=== PATIENT | female | born 1995 | race Caucasian/White ===

== ENCOUNTER 2023-01-29 11:02 | Outpatient (CLI) | payer OTHER | END 2023-01-29 23:59 | disposition critical access hospital (66) | LOC: EMS 11:02 | DX: M25.472 Effusion, left ankle (principal); M25.562 Pain in left knee; V43.64XA Car passenger injured in collision with van in traffic accident, initial encounter; Y92.414 Local residential or business street as the place of occurrence of the external cause | CPT/HCPCS: A0425; A0429 ==

== ENCOUNTER 2023-01-29 11:25 | Emergency (ER) | payer OTHER ==
[2023-01-29] MEDS ORDERED: SILVER SULFADIAZINE CREAM 25 GM TUBE TOP STA (12:16)
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
[2023-01-29] MEDS ORDERED: IBUPROFEN 600 MG TABLET PO STA (12:20)
[2023-01-29] MEDS ORDERED: ACETAMINOPHEN 325 MG TABLET PO STA (12:20)
--- NOTE | 2023-01-29 12:24 | XRAY Report ---
PROCEDURE: Ankle 3 View LT INDICATIONS: ankle injury/pain TECHNIQUE: 3 views of the ankle were acquired. COMPARISON: None. FINDINGS: Bones: No fractures or dislocations. Ankle mortise is normally aligned. No suspicious bony lesions . Soft tissues: No tibiotalar joint effusion. Achilles tendon appears normal. IMPRESSION: No acute bony abnormality. Reviewed by: Brien Park on 01/29/2023 11:23 AM MARINA Approved by: Brien Park on 01/29/2023 11:23 AM MARINA Station ID: [id number]
[2023-01-29 12:55] VITALS: BP 121/89
== END 2023-01-29 12:52 | disposition home or self-care (01) ==
LOC: ED 11:25
DX: T25.212A Burn of second degree of left ankle, initial encounter (principal); V89.2XXA Person injured in unspecified motor-vehicle accident, traffic, initial encounter; Y93.89 Activity, other specified
CPT/HCPCS: 73610; 99283; A9270

== ENCOUNTER 2023-02-05 09:31 | Emergency (ER) | payer OTHER ==
[2023-02-05 09:49] VITALS: BP 114/75
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
== END 2023-02-05 11:13 | disposition home or self-care (01) ==
LOC: ED 09:31
DX: T25.212A Burn of second degree of left ankle, initial encounter (principal); X08.8XXA Exposure to other specified smoke, fire and flames, initial encounter
CPT/HCPCS: 99281; 99283

== ENCOUNTER 2023-07-20 09:41 | Outpatient (CLI) | payer OTHER ==
--- NOTE | 2023-07-20 14:00 | MRI Report ---
PROCEDURE: KNEE WO - LT INDICATIONS: KNEE PAIN TECHNIQUE: Noncontrast sagittal PD fast spin echo and T2 fast spin echo with fat saturation, sagittal 3-D gradie nt sequence with fat saturation; coronal T1 spin echo and PD fast spin echo with fat saturation, and axial PD fast spin echo with fat saturation through the knee. COMPARISON: None. FINDINGS: Image quality: Excellent. Menisci: Subtle signal abnormality involving medial periphery of posterior horn medial meniscus likel y extending to inferior articulating surface concerning for subtle oblique tear in this area. The lat eral meniscus is intact.. The meniscal root ligaments appear intact. Cruciate ligaments: The anterior and posterior cruciate ligaments appear intact. Medial structures: The medial collateral ligament appears thickened at its femoral insertion. Visual ized portions of the pes anserinus tendons appear normal. No abnormal bursal fluid. Lateral structures: The lateral collateral ligament, long and short heads of the biceps femoris tend on appear intact. The popliteus tendon appears normal. Iliotibial band appears normal. Anterior structures: The quadriceps and patellar tendons appear intact. Patellar alignment is alexandre l. No femoral trochlear dysplasia or ventral trochlear prominence. No edema in the infrapatellar fa t pad. Bones and cartilage: No bone marrow contusions or fractures. The cartilage of the medial and latera l femorotibial compartments, as well as the patellofemoral compartment, appears normal in thickness. Joint space: There is small knee joint fluid. There is a Carranza's cyst measures 1.8 x 1.3 x 4 cm in s ize. Normal appearing synovial plicae are incidentally noted. IMPRESSION: 1. Finding is concerning for very subtle oblique tear involving medial periphery of posterior horn me dial meniscus extending to inferior articulating surface. The lateral meniscus is intact. 2. The cruciate ligaments are intact. 3. Low-grade proximal MCL sprain at its femoral insertion. 4. No marrow edema. No fracture or dislocation. Articulating cartilages normal in thickness. 5. Small joint effusion and a small Carranza's cyst as above. No gross loose bodies. Reviewed by: Manuel Hunter MD on 07/20/2023 1:59 PM PST Approved by: Manuel Hunter MD on 07/20/2023 1:59 PM PST Station ID: [id number]
== END 2023-07-20 09:42 | disposition home or self-care (01) ==
LOC: DI 09:41
DX: S83.412A Sprain of medial collateral ligament of left knee, initial encounter (principal); M25.462 Effusion, left knee; M71.22 Synovial cyst of popliteal space [Baker], left knee

== ENCOUNTER 2024-01-08 14:31 | Outpatient (CLI) | payer OTHER ==
--- NOTE | 2024-01-08 20:32 | MRI Report ---
Shoulder RT WO CLINICAL HISTORY: 28 years of age, Female, BILATERAL SHOULDER DISLOCATIONS. Comparison: No priors available Technique: Multiplanar, multisequence MRI of the right shoulder was performed without intravenous co ntrast. IV Contrast: Not Administered. Findings: Osseous acromial outlet: No significant degenerative changes of the acromioclavicular joint. Type I a cromion on sagittal imaging. No os acromiale. Mild subacromial/subdeltoid bursal fluid. Rotator cuff muscles and tendons: Low-grade interstitial tear at the junction of the supraspinatus an d infraspinatus, at the footprint extending to the critical zone. The teres minor is unremarkable. Th e subscapularis is unremarkable. Muscles are intact without evidence of atrophy or edema. Labral and capsular structures: Tear of the anterior labrum, extending to the anterior inferior labru m. There is tear of the superior posterior labrum as well, with multiple punctate paralabral cyst. Biceps tendon and anchor: The intra-articular and extra-articular biceps tendon are intact. Osseous and cartilaginous structures: Small Hill-Sachs deformity, measuring 1.2 x 0.3 cm (length by joel ordaz), without associated marrow edema, chronic. No acute fracture. Miscellaneous: No significant glenohumeral effusion. No intra-articular bodies. The remaining muscl es are normal in bulk without evidence of atrophy or edema. IMPRESSION: 1.Low-grade tear at the junction of supraspinatus and infraspinatus. 2.Labral tear as described above, with multiple punctate paralabral cysts about the superior posterio r labrum. 3.Small, chronic Hill-Sachs deformity. Body part: RIGHT shoulder. Reviewed by: Ludmila Ragsdale MD on 01/08/2024 8:31 PM PDT Approved by: Ludmila Ragsdale MD on 01/08/2024 8:31 PM PDT Station ID: [id number]
--- NOTE | 2024-01-08 21:08 | MRI Report ---
Shoulder LT WO CLINICAL HISTORY: 28 years of age, Female, BILATERAL SHOULDER DISLOCATIONS. Comparison: No priors available Technique: Multiplanar, multisequence MRI of the left shoulder was performed without intravenous con trast. IV Contrast: Not Administered. Findings: Osseous acromial outlet: The acromioclavicular joint is unremarkable. Type I acromion on sagittal devang ging. No os acromiale. Mild subacromial/subdeltoid bursal fluid. Rotator cuff muscles and tendons: Mild tendinosis at the junction of the supraspinatus and infraspina tus, without tear. The teres minor is unremarkable. The subscapularis is unremarkable. Muscles are intact without evidence of atrophy or edema. Labral and capsular structures: The visualized labrum appears intact on limited non-arthrogram sequen matias. No paralabral cyst. Biceps tendon and anchor: The intra-articular and extra-articular biceps tendon are intact. Osseous and cartilaginous structures: No Hill-Sachs deformity. No acute fracture. No focal chondral d efect of the glenohumeral joint. Miscellaneous: No significant glenohumeral effusion. No intra-articular bodies. The remaining muscl es are normal in bulk without evidence of atrophy or edema. IMPRESSION: 1.Mild subacromial/subdeltoid bursitis. 2.Mild tendinosis of the junction of supraspinatus and infraspinatus, without tear. 3.No labral tear. No Hill-Sachs deformity. Body part: LEFT shoulder. Reviewed by: Ludmila Ragsdale MD on 01/08/2024 9:07 PM PDT Approved by: Ludmila Ragsdale MD on 01/08/2024 9:07 PM PDT Station ID: [id number]
== END 2024-01-08 14:32 | disposition home or self-care (01) ==
LOC: DI 14:31
PROVIDERS: ATTEND General Practice
DX: M75.111 Incomplete rotator cuff tear or rupture of right shoulder, not specified as traumatic (principal); M21.821 Other specified acquired deformities of right upper arm; S43.431A Superior glenoid labrum lesion of right shoulder, initial encounter; M75.52 Bursitis of left shoulder; M75.92 Shoulder lesion, unspecified, left shoulder

== ENCOUNTER 2024-03-25 12:00 | Outpatient (CLI) | payer OTHER ==
--- NOTE | 2024-03-25 20:38 | XRAY Report ---
PROCEDURE: Shoulder 2+V RT INDICATIONS: RIGHT SHOULDER PAIN TECHNIQUE: 3 views of the shoulder were acquired. COMPARISON: Right shoulder MRI dated 01/08/2024. FINDINGS: Bones: No fractures or dislocations. No suspicious bony lesions. Visualized ribs appear intact. Soft tissues: No suspicious soft tissue calcifications. The visualized lungs are within normal limi ts. IMPRESSION: No acute bony abnormality. No gross soft tissue abnormalities. Reviewed by: Manuel Malcolm MD on 03/25/2024 8:37 PM PDT Approved by: Manuel Malcolm MD on 03/25/2024 8:37 PM PDT Station ID: [id number]
== END 2024-03-25 12:01 | disposition home or self-care (01) ==
LOC: DI 12:00
PROVIDERS: ATTEND Orthopaedic Surgery
DX: M25.511 Pain in right shoulder (principal)

== ENCOUNTER 2025-05-16 18:09 | Inpatient (IN) ==
[2025-05-16] MEDS ORDERED: OXYTOCIN 10 UNIT/ML VIAL IM PRN (18:57)
[2025-05-16] MEDS ORDERED: hydrALAZINE INJ 20 MG/ML VIAL IVP PRN (18:57)
[2025-05-16] MEDS ORDERED: CARBOPROST TROMETHAMINE 250 MCG/ML VIAL IM PRN (18:57)
[2025-05-16] MEDS ORDERED: TRANEXAMIC ACID IN NACL 1,000 MG/100 ML BAG IV PRN (18:57)
[2025-05-16] MEDS ORDERED: TERBUTALINE 1 MG/ML VIAL SUBQ PRN (18:57)
[2025-05-16] MEDS ORDERED: METHYLERGONOVINE 0.2 MG/ML VIAL IM PRN (18:57)
[2025-05-16] MEDS ORDERED: SODIUM CHLORIDE FLUSH 0.9% 10 ML SYRINGE IVP PRN (18:57)
[2025-05-16] MEDS ORDERED: LABETALOL 20 MG/4 ML SYRINGE IVP PRN ×3 (18:57)
[2025-05-16] MEDS ORDERED: SODIUM CHLORIDE FLUSH 0.9% 10 ML SYRINGE IVP SCH (19:00)
--- NOTE | 2025-05-16 19:13 | HISTORY & PHYSICAL EXAMINATION ---
Admit History Smoking Status: Never smoker Meds/Allgy Home Medications Ambulatory Orders Medication Instructions Recorded Confirmed vits no.126-ferrous fum tab PO QDAY 10/16/24 05/13/25 28 mg iron-folic acid 800 mcg tablet (Classic ) ferrous sulfate 325 mg (65 mg 325 mg PO Q OTHER DAY #9 0 tabs 02/27/25 05/13/25 iron) tablet (FeroSul) breast pump #1 ea 05/13/25 05/13/25 Allergies Allergies Allergy/AdvReac Type Severity Reaction Status Date / Time No Known Drug Allergies Allergy Verified 05/13/25 15:17 PFSH Active Problems All Active Problems (Updated 04/22/25 @ 00:00 by ) Supervision of normal first , antepartum (Acute) Rh negative state in antepartum period (Acute) Anemia (Acute) Myopia of both eyes (Acute) Medical History Medical History (Updated 04/22/25 @ 00:00 by ) Bursitis of left shoulder Anterior to posterior tear of superior glenoid labrum of right shoulder Surgical History Surgical History (Updated 11/07/24 @ 21:35 by Mary Rosas MD) Hx of tonsillectomy (09/2023) Social History Social History (Updated 04/08/25 @ 20:25 by Veronica Nelson CNM, [facility]) Smoking Status: Never smoker Do you dip or chew tobacco?: No Do you vape?: No Living arrangement: At home Living Condition: With spouse/s.o. Level: Independent Do you feel safe in your home environment?: Yes History of physical, verbal, emotional, or financial abuse?: No ETOH Use: None Substance Use: denies use Are you sexually active?: Yes Occupation - Current: [employer] Plan for Labor Plan For Labor I expect patient to be DC'd or transferred within 96 hours.: Yes Plan for Labor: HPI: Meeta is a 29yo @ 39.4wks gestation who presents to [facility] for elective induction of labor. She reports she is feeling well other than a little anxious. She denies vaginal bleeding or leakage of fluid. Experienced some menstrual like cramping last night and this morning but nothing overly uncomfortable or consistent. She did lose her mucus plug yesterday and states it was slightly blood tinged but otherwise denies bleeding. She reports +FM. Upon arrival cervix is closed/50/-2 and vertex with intact membranes. She has been a patient of [facility] for the duration of her which has been uncomplicated with the exception of breech presentation at 37wks gestation which was followed by a successful external cephalic version and she has remained vertex, verified by bedside ultrasound since that time. In addition, she is noted to have mild anemia for which she is taking oral iron supplement. She is supported by her partner Iftikhar this evening. She will be admitted to [facility] for placement of cervical ripening balloon in anticipation for induction of labor. In the event of an emergency, accepts the administration of blood products. Medical Hx: No significant Surgical Hx: Shoulder surgery, tonsillectomy. Social Hx: Monogamous with male partner Iftikhar. 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 Stopped drinking alcohol due to . Denies current use of tobacco, marijuana or other recreational drugs. Non-smoker. Reports that she is safe in current relationship. Family Hx: Denies family history of congenital anomalies, Cystic Fibrosis or chromosomal abnormalities Allergies: NKDA Medications: PNV, Ferrous sulfate 325mg q every other day LMP: 08/12/2024 ELAINE by LMP: 05/19/2025 US:10/21/2024 @10+0 Final ELAINE: 05/19/2025 c/w LMP : Current Partner/FOB: Morales Jensener PROBLEMS: 1. Breech presentation- successful ECV 04/29/2025 2. Anemia (on oral iron) 3. RH negative -s/p rhogam 02/27/2025 CONSULTS: ECV consult Dr. Camacho 04/21/2025 Pre- Weight: 139 BMI: 20.2 Blood type: A Negative RHOGAM- 02/27 GIVEN Antibody: Negative CBC: H/H/PLT- 12.1/34.1/363 RUB:imm VZV:imm HBsAg: Negative HepC: NR RPR/AB-EIA: NR HIV:NR PAP: 04/06/2023-normal GC/CT: 4/8 negative HSV: denies Genetic testing: NIPT negative (Its a BOY) AFP-negative Covid: 2019 Flu: 2023 FAS: Placenta: posterior, w/o previa Cord:3VC ELOISE:WNL EFW:369g, 22% 50gm OGCT: 134 TDAP:02/26 Breast Pump:02/26 Antibody screen: NEGATIVE Rhogam given 02/27 3rd trimester H/H/PLT 11.8/35.0/354 3rd trimester RPR- NEG GBS: Positive Delivery plan: EPIDURAL Physical exam: Normocephalic, atraumatic Heart RRR w/o M/G/R Lungs CTAB Abdomen gravid, soft, nontender FHR baseline 130s, moderate variability, + accels, no decels Occasional contraction noted via tocometry and palpates mild with soft resting tone SVE closed/50/-2, vertex with intact membranes. Cervical ripening balloon inserted with 80cc intrauterine and 80cc vaginal balloon. Pt tolerated insertion well. Bilateral LE's no edema Mood is good Assessment: 29yo @ 39.4wks gestation by LMP c/w first trimester ultrasound Mild anemia complicating FHR Category I GBS Positive Plan: Admit to [facility] for pre-induction cervical ripening with cervical ripening balloon. Intermittent heart rate monitoring after initial 4 hours of continuous fet al monitoring. Return for removal of cervical ripening balloon in 12 hours unless spontaneously expelled prior. Initiate ampicillin for GBS prophylaxis per protocol with SROM or onset of active labor. Jacuzzi PRN. Nitrous oxide PRN. Epidural per maternal request. Anticipate .
--- OUTSIDE RECORDS SUMMARY | 2025-05-16 20:15 | EXTERNAL MEDICAL SUMMARY RPT | Continuity of Care Document ---
Author Organization [place] Address [address] [address] Phone Problems date description facility 2025-02-25 18:04 Other specified preg heena related conditions, unspecified trimester [facility] 2025-02-25 18:04 Encounter for superv ision of normal first , unspecified trimester [facility] 2025-02-25 18:04 Unspecified blood type, Rh nega tive [facility] 2025-02-27 14:34 Anemia, unspecified [facility] 2025-02-27 14:34 Other specified preg heena related conditions, unspecified trimester [facility] 2025-02-27 14:34 Encounter for superv ision of normal first , unspecified trimester [facility] 2025-02-27 14:34 Unspecified blood type, Rh nega tive [facility] 2025-02-27 15:15 Anemia, unspecified [facility] 2025-02-27 15:15 Other specified preg heena related conditions, unspecified trimester [facility] 2025-02-27 15:15 Unspecified blood type, Rh nega tive [facility] 2025-02-28 00:05 Anemia, unspecified [facility] 2025-02-28 00:05 Other specified preg heena related conditions, unspecified trimester [facility] 2025-02-28 00:05 Encounter for superv ision of normal first , unspecified trimester [facility] 2025-02-28 00:05 Unspecified blood type, Rh nega tive [facility] 2025-02-28 12:12 Anemia complicating , unspecified trimester [facility] 2025-03-14 08:15 Encounter for superv ision of normal first , third trimester [facility] 2025-03-14 08:16 Encounter for superv ision of normal first , third trimester [facility] 2025-03-14 08:16 30 weeks [facility] of [facility] 2025-03-17 09:55 Encounter for superv ision of normal , unspecified, third [facility] 2025-04-10 09:16 Encounter for superv ision of normal first , third trimester [facility] 2025-04-10 09:16 34 weeks [facility] of [facility] 2025-04-21 11:55 Encounter for screeni ng for Streptococcus B [facility] 2025-04-21 13:11 Encounter for screeni ng for Streptococcus B [facility] 2025-04-21 13:12 Encounter for screeni ng for Streptococcus B [facility] 2025-04-21 14:01 Encounter for screeni ng for Streptococcus B [facility] 2025-04-22 00:05 Encounter for screeni ng for Streptococcus B [facility] 2025-04-23 08:44 Maternal care for br eech presentation, not applicable or unspecified [facility] 2025-04-23 08:44 Encounter for screeni ng for Streptococcus B [facility] 2025-04-23 08:44 36 weeks gestation of [facility] 2025-04-23 11:48 Maternal care for br eech presentation, not applicable or unspecified [facility] 2025-04-23 11:48 Encounter for screeni ng for Streptococcus B [facility] 2025-04-23 11:48 36 weeks [facility] of [facility] 2025-04-23 11:51 Maternal care for br eech presentation, not applicable or unspecified [facility] 2025-04-23 11:51 Encounter for screeni ng for Streptococcus B [facility] 2025-04-23 11:51 36 weeks [facility] of [facility] 2025-04-30 16:07 Maternal care for br eech presentation, not applicable or unspecified [facility] 2025-05-06 08:24 Streptococcus B carrier state c omplicating [facility] 2025-05-06 08:24 37 weeks [facility] 2025-05-12 12:26 Encounter for superv ision of normal first , third trimester [email or web address] 2025-05-15 10:43 Encounter for superv ision of normal first , third trimester [email or web address] Results/Labs test date facility value unit notes Result panel 1 HGB - HEMOGLOBIN 2025-02-27 14:51 [email or web address] 11.8 g/dl (missing) RED CELL DISTRIBUTION WIDTH 2025-02-27 14:51 [email or web address] 12.4 % (missing) WHITE BLOOD COUNT 2025-02-27 14:51 [email or web address] 13.4 x10 3/ul (missing) GLUCOSE,1H PP 50GM DOSE 2025-02-27 14:51 [email or web address] 134 mg/dl 50g Challenge 1 hr post Glucose < 140 mg/dL Reference: [employer] As of January 2023 testing method has changed, this may include reference ranges. RED BLOOD COUNT 2025-02-27 14:51 [email or web address] 3.84 10 6/ul (missing) MEAN CORPUSCULAR HEMOGLOBIN 2025-02-27 14:51 [email or web address] 30.7 pg (missing) MEAN CORPUSCULAR HGB CONC 2025-02-27 14:51 [email or web address] 33.7 g/dl (missing) HCT - HEMATOCRIT 2025-02-27 14:51 [email or web address] 35.0 % (missing) PLT - PLATELET COUNT 2025-02-27 14:51 [email or web address] 354 10 3/ul (missing) FERRITIN 2025-02-27 14:51 [email or web address] 8.7 ng/ml (missing) MEAN PLATELET VOLUME 2025-02-27 14:51 [email or web address] 9.8 fl (missing) MEAN CORPUSCULAR VOLUME 2025-02-27 14:51 [email or web address] 91.1 fl (missing) RPR 2025-02-27 14:51 [email or web address] Non Reactive (missing) Performed at: [facility] Lab[address] [id number] Sign Board Erector: Kj Martínez MD, Phone: [phone] Result panel 2 GROUP B STREP PCR 2025-04-21 11:54 [email or web address] POSITIVE (missing) (missing) Result panel 3 NUCLEATED RED BLOOD CELLS AUTO 2025-04-29 08:35 [facility] 0.0 /100wbc (missing) BASOPHILS # (AUTO) 2025-04-29 08:35 [facility] 0.0 10 3/ul (missing) NRBC ABSOLUTE COUNT (AUTO) 2025-04-29 08:35 [facility] 0 .00 x10 3/ul (missing) EOSINOPHILS # (AUTO) 2025-04-29 08:35 [facility] 0.1 10 3/ul (missing) MONOCYTES # (AUTO) 2025-04-29 08:35 [facility] 0.8 10 3/ul (missing) LYMPHOCYTES # (AUTO) 2025-04-29 08:35 [facility] 1.8 10 3/ul (missing) MEAN PLATELET VOLUME 2025-04-29 08:35 [facility] 10.2 fl (missing) HGB - HEMOGLOBIN 2025-04-29 08:35 [facility] 11.7 g /dl (missing) WHITE BLOOD COUNT 2025-04-29 08:35 [facility] 11.7 x10 3/ul (missing) RED CELL DISTRIBUTION WIDTH 2025-04-29 08:35 [facility] 13.0 % (missing) PLT - PLATELET COUNT 2025-04-29 08:35 [facility] 287 10 3/ul (missing) RED BLOOD COUNT 2025-04-29 08:35 [facility] 3.82 10 6/ul (missing) MEAN CORPUSCULAR HEMOGLOBIN 2025-04-29 08:35 [facility] 30.6 pg (missing) MEAN CORPUSCULAR HGB CONC 2025-04-29 08:35 [facility] 33 .7 g/dl (missing) HCT - HEMATOCRIT 2025-04-29 08:35 [facility] 34.7 % (missing) NEUTROPHILS # (AUTO) 2025-04-29 08:35 [facility] 9.0 10 3/ul (missing) MEAN CORPUSCULAR VOLUME 2025-04-29 08:35 [facility] 90.8 fl (missing) Social History date description facility
[2025-05-16 20:25] LABS: HCT - HEMATOCRIT 33.1 % (37.0-47.0); HGB - HEMOGLOBIN 11.3 g/dL (12.0-16.0); MEAN PLATELET VOLUME 11.2 fL (7.9-10.8); NRBC ABSOLUTE COUNT (AUTO) 0.00 x10^3/uL; NUCLEATED RED BLOOD CELLS AUTO 0.0 /100WBC; PLT - PLATELET COUNT 291 10^3/uL (130-450); RED CELL DISTRIBUTION WIDTH 12.8 % (12.0-15.0)
[2025-05-16] MEDS: fentaNYL 100 MCG/2 ML VIAL IVP PRN (23:42)
[2025-05-17] MEDS ORDERED: ROPIVACAINE 0.2% 200 MG/100 ML BAG EP ONE (00:09)
[2025-05-17] MEDS ORDERED: LIDOCAINE 2%-EPI 1:100000 20 ML MDV ONE (00:09)
[2025-05-17] MEDS: LACTATED RINGERS 1,000 ML IV PRN (00:10)
[2025-05-17] MEDS ORDERED: ONDANSETRON 4 MG/2 ML VIAL ONE (00:44)
--- NOTE | 2025-05-17 01:03 | ANESTHESIA PROCEDURE NOTE ---
Pre-Anesthesia VS, & Labs Diagnosis Surgical Diagnosis:: labor pain Procedure Procedure: labor epidural Vitals Vital Signs: Temp Pulse Resp BP 36.4 C L 58 L 17 119/74 05/16/25 19:06 05/16/25 19:06 05/16/25 19:06 05/16/25 19:06 NPO NPO: Other Is Patient ?: Yes Lab Results Current Lab Results: Laboratory Tests 05/16/25 20:30: Blood Type A NEGATIVE, Antibody Screen POSITIVE, Antibody Identification See Comments, DIALLO, IgG Specific Not Reportable, DIALLO, Polyspecific NEGATIVE, DIALLO, C3d Specific Not Reportable 05/16/25 19:15: WBC 12.0 H, RBC 3.66 L, Hgb 11.3 L, Hct 33.1 L, MCV 90.4, MCH 30.9, MCHC 34.1, RDW 12.8, Plt Count 291, MPV 11.2 H, Neut # (Auto) 8.6 H, Lymph # (Auto) 2.4, [place] # (Auto) 0.9, Eos # (Auto) 0.1, Baso # (Auto) 0.0, Absolute Nucleated RBC 0.00, Nucleated RBC % 0.0 05/16/25 19:15 Meds/Allgy Home Medications Ambulatory Orders Medication Instructions Recorded Confirmed vits no.126-ferrous fum tab PO QDAY 10/16/24 05/13/25 28 mg iron-folic acid 800 mcg tablet (Classic ) ferrous sulfate 325 mg (65 mg 325 mg PO Q OTHER DAY #9 0 tabs 02/27/25 05/16/25 iron) tablet (FeroSul) breast pump #1 ea 05/13/25 05/16/25 Held on 05/16/25. Instructions: Per Patient Allergies Allergies Allergy/AdvReac Type Severity Reaction Status Date / Time No Known Drug Allergies Allergy Verified 05/16/25 20:50 PFSH Active Problems All Active Problems (Updated 05/17/25 @ 01:02 by Vannesa Ferrer CRNA) Scoliosis (Acute) Supervision of normal first , antepartum (Acute) Rh negative state in antepartum period (Acute) Anemia (Acute) Myopia of both eyes (Acute) Medical History Medical History (Updated 05/17/25 @ 01:02 by Vannesa Ferrer CRNA) Bursitis of left shoulder Anterior to posterior tear of superior glenoid labrum of right shoulder Surgical History Surgical History (Updated 05/17/25 @ 01:02 by Vannesa Ferrer CRNA) H/O shoulder surgery Hx of tonsillectomy (09/2023) Social History Social History Smoking Status: Never smoker Do you dip or chew tobacco?: No Do you vape?: No Patient requests smoking cessation consult: No Initiate information on smoking cessation: No Living arrangement: At home Living Condition: With spouse/s.o. Level: Independent Do you feel safe in your home environment?: Yes History of physical, verbal, emotional, or financial abuse?: No ETOH Use: None Substance Use: denies use Are you sexually active?: Yes Occupation - Current: [employer] CPR Status: Attempt Resuscitation (CPR) Level of Medical Intervention: Full Treatment Anesthesia Exam (Expanded) Exam General: Alert, Oriented x3 and Cooperative Dental: WNL Mouth Openin Fingerbreadth Neck Mobility: Normal Mallampati classification: I Thyromental Distance: 4-6 cm Respiratory: Lungs clear Cardiovascular: Regular rate Exam Exam Vital Signs: Vital Signs x48h Temp Pulse Resp BP 05/16/25 19:06 36.4 C L 58 L 17 119/74 Plan Problem List (1) Scoliosis: (2) H/O shoulder surgery: Plan Anesthesia Type: Epidural Consent for Procedure(s) Verified and Reviewed: Yes Code Status: Attempt Resuscitation ASA Classification ASA classification: 2-Mild systemic disease Is this case an emergency?: No
[2025-05-17] MEDS ORDERED: NALBUPHINE 10 MG/ML AMP IVP PRN (01:04)
[2025-05-17] MEDS ORDERED: NALOXONE 0.4 MG/ML VIAL IVP PRN (01:04)
[2025-05-17] MEDS ORDERED: METOCLOPRAMIDE 10 MG/2 ML VIAL IVP PRN (01:04)
[2025-05-17] MEDS ORDERED: LACTATED RINGERS 500 ML IV ONE (01:04)
--- NOTE | 2025-05-17 06:59 | PROVIDER PROGRESS NOTE ---
Labor Progress Note Labor Progress Note Labor Progress Note/Additional Text: S: Feeling comfortable with epidural in place. She has been able to sleep for several hours since the placement and is doing well. Mood is good and partner Iftikhar is supportive at the bedside. O: FHR baseline 140s, moderate variability, + accels, no decels Contractions palpate mild intermittently with soft resting tone SVE 2-3/70/-2, soft, midposition. Vertex Cervical ripening balloon removed complete and intact without difficulty. A: 29yo @ 39.5wks gestation Induction of labor FHR Category I GBS positive P: Initiate pitocin for induction of labor with titration per protocol. Initiate ampicillin for GBS prophylaxis per protocol. Continuous monitoring. Maintain epidural for pain management. Encouraged rotate in bed on peanut ball. Anticipate .
[2025-05-17] MEDS: ePHEDrine 50 MG/ML VIAL IVP PRN (07:06)
[2025-05-17] MEDS: OXYTOCIN/SODIUM CHLORIDE 500 ML IV SCH (07:42)
[2025-05-17] MEDS: ROPIVACAINE 0.2% 200 MG/100 ML BAG EP PRN (11:04)
[2025-05-17] MEDS: AMPICILLIN 2 GM in SODIUM CHLORIDE 0.9% MINIBAG 100 ML IV SCH (11:09)
--- NOTE | 2025-05-17 11:51 | PROVIDER PROGRESS NOTE ---
Labor Progress Note Labor Progress Note Labor Progress Note/Additional Text: S: Patient currently right side lying and comfortable with epidural. She states she has a mild headache and feels it is due to caffeine withdrawal. She denies visual disturbances, RUQ or epigastric pain. Her blood pressure has been norm otensive. She reports otherwise she is feeling well and continues to rest between position changes. O: FHR baseline 130s, moderate variability, + accels, no decels Contractions palpate moderate every 2-4 minutes with soft resting tone SVE 3/70/-2, soft. Vertex. Pitocin @ 12mU/min A: 29yo @ 39.5wks gestation Elective induction of labor FHR Category I GBS positive P: Continue pitocin for induction of labor with titration per protocol. Consider AROM with next SVE in 4 hours. SVE in 4 hours or sooner PRN. Continuous monitoring. Continue ampicillin for GBS prophylaxis per protocol. Encouraged rotation in bed on peanut ball. Anticipate .
[2025-05-17] MEDS: ACETAMINOPHEN 500 MG TABLET PO PRN (12:24)
[2025-05-17] MEDS: AMPICILLIN 1 GM in SODIUM CHLORIDE 0.9% MINIBAG 100 ML IV SCH (15:13)
[2025-05-17] MEDS: ONDANSETRON 4 MG/2 ML VIAL IVP PRN (16:34)
--- NOTE | 2025-05-17 16:44 | PROVIDER PROGRESS NOTE ---
Labor Progress Note Labor Progress Note Labor Progress Note/Additional Text: S: Patient comfortable with epidural. Headache noted earlier this afternoon has resolved. Intermittent, mild nausea without vomiting. Mood is good. Partner Iftikhar supportive at the bedside. O: FHR baseline 130s, moderate variability, + accels, intermittent variable decels Contractions palpate moderate every 2-3 minutes with soft resting tone SVE unchanged from last exam (/-2). Vertex Pitocin @ 18mU/min AROM - moderate amount of clear fluid IUPC placed A: 29yo @ 39.5wks gestation Early labor GBS positive FHR Category II intermittently - overall remains reassuring P: Continue pitocin induction of labor with titration per protocol to reach/maintain adequate MVUs. Continuous monitoring. Maintain epidural for pain management. Encouraged rotation in bed on peanut ball. Anticipate .
--- NOTE | 2025-05-17 20:56 | PROVIDER PROGRESS NOTE ---
Labor Progress Note Labor Progress Note Labor Progress Note/Additional Text: S: Laying in bed positioned on left side. She is feeling comfortable with her epidural. She states over the past hour or so she has started to experience some pressure in her lower back and buttocks but denies pain and states her epidural seems to be working well for her. She states she is tired but doing well. Her partner Iftikhar is supportive at the bedside. O: FHR baseline 140s, moderate variability, + accels, intermittent variable decels Contractions adequate MVUs as relayed by RN. Palpte strong every 2-4 minutes with soft resting tone SVE 4/80/-1, Vertex. AROM x 4hrs IUPC remains in place Pitocin @ 10mU/min A: 29yo @ 39.5wks gestation Early labor Induction of labor FHR Category I with intermittent periods of Category II - overall reassuring GBS positive P: Continue pitocin for induction of labor with titration per protocol. Maintain IUPC in place for adequate contraction monitoring via MVUs. Continuous monitoring. Continue ampicillin for GBS prophylaxis per protocol. Encouraged rotation in bed on peanut ball as tolerated. Anticipate .
[2025-05-17] MEDS ORDERED: DEXMEDETOMIDINE 200 MCG/2 ML VIAL ONE (22:36)
[2025-05-17] MEDS ORDERED: BUPIVACAINE 0.25% PF 10 ML VIAL ONE (22:36)
[2025-05-17] MEDS: OXYTOCIN/SODIUM CHLORIDE 500 ML IV PRN (22:42)
[2025-05-17] MEDS ORDERED: HYDROCORTISONE 1% CREAM 28 GM TUBE TOP PRN (23:13)
[2025-05-17] MEDS ORDERED: SIMETHICONE CHEW 80 MG TABLET PO PRN (23:13)
[2025-05-17] MEDS ORDERED: WITCH HAZEL/GLYCERIN 1 PAD TOP PRN (23:13)
[2025-05-17] MEDS ORDERED: OXYTOCIN/SODIUM CHLORIDE 500 ML IV PRN (23:13)
--- NOTE | 2025-05-17 23:23 | DELIVERY NOTE ---
Delivery Note Delivery Comments (Free Text/Narrative) Delivery Comments (Free Text/Narrative): Labor: This 29yo @ 39.5wks gestation by LMP c/w first trimester ultrasound presented to [facility] for elective induction of labor. Cervix was closed/50/-3 and vertex with intact membranes. She had a cervical ripening balloon in place x 12 hours. It was removed and SVE was 3/70/-2 and vertex with intact membranes. AROM occurred Pitocin was initiated for induction of labor with titration per protocol for a maximum infusion rate of 18mU/min. FHR demonstrated Category I patern with intermittent periods of Category II throughout labor but overall remained reassuring. Precipitous labor course. Epidural placed per maternal request. AROM occurred @ 1620 and was noted to be a moderate amount of clear fluid. She progressed to c/c/+2 @ 2215. : Normal SVB of viable FEMALE infant on 05/17/2025 @ 2231. Nucal cord x 1 was delivered through and reduced after delivery. The was placed on maternal abdomen, stimulated, dried, and placed skin to skin. 's were 8/9 at 1 and 5 min respectively. Pitocin administered via IV for hemostasis. The umbilical cord was allowed to stop pulsating at which time it was doubly clamped by CNM and cut by FOB. Cord blood was obtained. 3VC. Fundal massage and gentle cord traction applied for active management of the third stage. Placenta delivered spontaneously and intact at 2242. QBL 250mL. Fourth stage: Uterine fundus firm and there is no excessive bleeding. The pe rineum, vagina, and cervix were inspected and found to have a 1st degree vaginal laceration and 1st degree right upper labial laceration which was repaired using a 3-[address]-1 needle, in standard fashion and under sterile conditions. Vaginal examination following repair was performed. Tissues well approximated. initiated. Both mother and baby were left in stable condition.
[2025-05-18] MEDS: IBUPROFEN 800 MG TABLET PO PRN
[2025-05-18] MEDS: DOCUSATE SODIUM 100 MG CAPSULE PO SCH (08:04)
--- NOTE | 2025-05-18 10:21 | ANESTHESIA POST OP EVALUATION ---
Anesthesia Post Eval Post Anesthesia Eval Vitals: Last Vital Signs Temp 36.7 C 05/18/25 09:52 Pulse 71 05/18/25 09:52 Resp 18 05/18/25 09:52 BP 138/80 H 05/18/25 09:52 Pulse Ox 98 05/18/25 09:52 CV Function Including HR & BP: Stable Pain Control: Satisfactory Nausea & Vomiting: Negative Mental Status: Baseline Respiratory Status: Airway Patent Hydration Status: Satisfactory Anesthesia Complications: None
--- NOTE | 2025-05-18 12:01 | PROVIDER PROGRESS NOTE ---
Current Medications Current Medications Current Medications: Current Medications Generic Name Dose Route Start Last Admin Trade Name Mikieq PRN Reason Stop Dose Admin Acetaminophen 1,000 mg 05/17/25 11:47 05/18/25 04:00 Acetaminophen 500 Mg Tablet PO 1,000 mg Q8HR PRN Administration Pain or Fever > 38C (100.4F) Acetaminophen 1,000 mg 05/17/25 23:13 Acetaminophen 500 Mg Tablet PO Q8HR PRN Mild Pain or Fever>38C(100.4F) Carboprost Tromethamine 250 mcg 05/16/25 18:57 Carboprost Tromethamine 250 Mcg/Ml Vial IM .ONCE PRN Hemorrhage Diphenhydramine HCl 12.5 - 25 mg 05/17/25 01:04 Diphenhydramine Inj 50 Mg/Ml Vial IVP Q6HR PRN ITCHING Docusate Sodium 100 mg 05/18/25 09:00 05/18/25 08:04 Docusate Sodium 100 Mg Capsule PO 100 mg BID GREG Administration Ephedrine Sulfate 5 mg 05/17/25 01:04 05/17/25 07:06 Ephedrine 50 Mg/Ml Vial IVP 5 mg Q5M PRN Administration For SBP<100;give until SBP>100 Fentanyl 50 mcg 05/16/25 18:57 05/16/25 23:42 Fentanyl 100 Mcg/2 Ml Vial IVP 50 mcg Q1H PRN Administration Severe Pain (score 7-10) Hydralazine HCl 5 - 10 mg 05/16/25 18:57 Hydralazine Inj 20 Mg/Ml Vial IVP Q20M PRN SBP> or= 160 OR DBP> or= 110 Protocol Hydrocortisone 1 applic 05/17/25 23:13 Hydrocortisone 1% Cream 28 Gm Tube TOP QID PRN PERINEAL REPAIR Lactated Ringer's 500 mls @ 999 mls/hr 05/16/25 18:57 05/17/25 18:02 Lr IV 125 mls/hr PRN PRN Administration PER PHYSICIAN ORDER Oxytocin/Sodium Chloride 500 mls @ 999 mls/hr 05/16/25 18:57 05/17/25 23:12 Pitocin/Sodium Chloride IV Infused PRN PRN Titration POST- HEMORR PREVENTION Protocol 999 MILLIUNIT/MIN Tranexamic Acid 1,000 mg in 100 mls @ 600 mls/hr 05/16/25 18:57 Tranexamic 1,000 Mg/100ml-Nacl IV Q30M PRN EBL >1200mL and within 3hr Ropivacaine 200 mg in 100 mls @ 0 mls/hr 05/17/25 01:04 05/17/25 20:22 Naropin 0.2% EP 8 mls/hr PRN PRN Administration PAIN Protocol Per Protocol Oxytocin/Sodium Chloride 500 mls @ 2 mls/hr 05/17/25 06:54 05/17/25 16:38 Pitocin/Sodium Chloride IV 9 milliunit/min TITR GREG 9 mls/hr Protocol Titration 2 MILLIUNIT/MIN Ampicillin Sodium 1 gm/ Sodium 100 mls @ 200 mls/hr 05/17/25 11:00 05/17/25 19:30 Chloride IV Infused Q4HR GREG Infusion Oxytocin/Sodium Chloride 500 mls @ 999 mls/hr 05/17/25 23:13 Pitocin/Sodium Chloride IV PRN PRN POST- HEMORR PREVENTION Protocol 999 MILLIUNIT/MIN Ibuprofen 800 mg 05/17/25 23:13 05/18/25 00:00 Ibuprofen 800 Mg Tablet PO 800 mg Q8HR PRN Administration Moderate Pain (Level 4-6) Labetalol HCl 20 - 80 mg 05/16/25 18:57 Labetalol 20 Mg/4 Ml Syringe IVP Q10M PRN SBP> or= 160 OR DBP> or= 110 Protocol Labetalol HCl 20 mg 05/16/25 18:57 Labetalol 20 Mg/4 Ml Syringe IVP .ONCE PRN SBP> or= 160 OR DBP> or= 110 Protocol Labetalol HCl 20 - 40 mg 05/16/25 18:57 Labetalol 20 Mg/4 Ml Syringe IVP Q10M PRN SBP> or= 160 OR DBP> or= 110 Protocol Lidocaine HCl 20 ml 05/16/25 18:57 Lidocaine 1% 20 Ml Mdv ID 05/19/25 18:57 .ONCE PRN PERINEAL REPAIR Methylergonovine Maleate 0.2 mg 05/16/25 18:57 Methylergonovine 0.2 Mg/Ml Vial IM .ONCE PRN Hemorrhage Metoclopramide HCl 10 mg 05/17/25 01:04 Metoclopramide 10 Mg/2 Ml Vial IVP Q6HR PRN Nausea / Vomiting Misoprostol 600 mcg 05/16/25 18:57 Misoprostol 200 Mcg Tablet BC .ONCE PRN Hemorrhage Misoprostol 800 mcg 05/16/25 18:57 Misoprostol 200 Mcg Tablet MI .ONCE PRN Hemorrhage Nalbuphine HCl 2.5 - 5 mg 05/17/25 01:04 Nalbuphine 10 Mg/Ml Amp IVP Q4H PRN ITCHING Naloxone HCl 0.1 mg 05/17/25 01:04 Naloxone 0.4 Mg/Ml Vial IVP Q2M PRN RR<8 Nifedipine 10 - 20 mg 05/16/25 18:57 Nifedipine 10 Mg Capsule PO Q20M PRN SBP> or= 160 OR DBP> or= 110 Protocol Ondansetron HCl 4 mg 05/17/25 01:04 05/17/25 16:34 Ondansetron 4 Mg/2 Ml Vial IVP 4 mg Q6HR PRN Administration Nausea / Vomiting Oxytocin 10 unit 05/16/25 18:57 Oxytocin 10 Unit/Ml Vial IM .ONCE PRN Step One if no IV access. Simethicone 80 mg 05/17/25 23:13 Simethicone Chew 80 Mg Tablet PO TID PRN Gas Sodium Chloride 10 ml 05/16/25 18:57 Sodium Chloride Flush 0.9% 10 Ml Syringe IVP PRN PRN NEEDED PER PROVIDER ORDERS Sodium Chloride 10 ml 05/16/25 19:00 Sodium Chloride Flush 0.9% 10 Ml Syringe IVP Q8H GREG Terbutaline Sulfate 0.25 mg 05/16/25 18:57 Terbutaline 1 Mg/Ml Vial SUBQ .ONCE PRN Tachystole Witch Renee/Glycerin 1 pad 05/17/25 23:13 Witch Renee/Glycerin 1 Pad TOP PRN PRN PERINEAL REPAIR Objective Vital Signs/Intake & Output Vital Signs: Vital Signs x48h Temp Pulse Resp BP Pulse Ox 05/18/25 09:52 98.1 F 71 18 138/80 H 98 05/18/25 06:00 97.9 F 57 L 16 129/77 Intake & Output: Intake & Output 05/15/25 05/16/25 05/17/25 05/18/25 23:59 23:59 23:59 23:59 Intake Total 1481 / 1481 Output Total 5225 / 5225 2100 / 2100 Balance -3744 / -3744 -2099 -2099 Weight (kg) 172 lb Lab Results 05/16/25 19:15 Assessment/Plan Problem List (1) Normal vaginal delivery: Impression: S: Bonding well with baby. without difficulty. Bleeding decreased and is light. Pain is well controlled with oral medications. She is urinating without difficulty. Has not yet had BM. is supportive at the bedside. O: Heart RRR w/o M/G/R, lungs CTAB, abdomen soft and nontender with fundus firm at U, perineum intact, light lochia rubra, bilateral LE's trace edema A: 29yo -->P1 PPD#1 s/p TSVD viable female infant Rh negative- Rh negative Normal recovery P: Continue routine care and medications. Evaluate for discharge home tomorrow
[2025-05-18] MEDS: ACETAMINOPHEN 500 MG TABLET PO PRN (19:33)
[2025-05-19 03:52] VITALS: TEMP 98.1; O2SAT 98
--- NOTE | 2025-05-19 10:45 | Discharge Summary ---
Discharge Summary HOSPITAL COURSE Hospital Course: Date of Admission: 05/16/2025 Date of Discharge: 05/19/2025 Diagnosis on Admission: 1.29yo @ 39.4wks gestation by LMP c/w first trimester ultrasound 2. Mild anemia complicating 3. FHR Category I 4. GBS Positive Diagnosis on Discharge: 1. 29yo PPD#2 s/p TSVD viable female infant 2. 3. Normal recovery Brief History: She is a patient of [facility] who presented on in active labor. Cervix was closed/70/-2 and vertex with intact membranes. Epidural was placed per maternal request. AROM occurred @1620 on 05/17/2025 and was noted to be a moderate amount of clear fluid. She spontaneously progressed to deliver a viable female on 05/17/2025 @ 2215. Perineum was intact. 1st degree vaginal and 1st degree right upper labial laceration were repaired using a 3-[address]-1 needle in standard fashion and under sterile conditions. Apgars were 8/9 at 1 and 5 minutes respectively. QBL 250 mL. She has been doing well in her course. She is ambulating and tolerating a regular diet. She is urinating without difficulty and her lochia is normal. Her pain is well controlled with oral medications. She will be discharged home today on day #2 with instructions to continue taking her vitamin while and to continue taking Ibuprofen and Tylenol over the counter as needed for pain management. She intends to follow up with myself at [facility] in 1 week for routine visit or sooner if needed. She has been given precautions to call if she has any worsening fevers, chills, abdominal pain, increased vaginal bleeding or foul smelling vaginal lochia. Physical Exam: Normocephalic, atraumatic. Heart RRR w/o M/G/R, lungs CTAB, abdomen soft and nontender with fundus firm at U-1, perineum intact, light lochia rubra, bilateral LE's no edema. Mood is good. ALLERGIES Allergies Allergy/AdvReac Type Severity Reaction Status Date / Time No Known Drug Allergies Allergy Verified 05/16/25 20:50 MEDICATIONS Ambulatory Orders Medication Instructions Recorded Confirmed vits no.126-ferrous fum 1 tab PO QDAY 5 05/19/25 28 mg iron-folic acid 800 mcg tablet (Classic ) breast pump #1 ea 05/13/25 05/16/25 PHYSICAL EXAM AT DISCHARGE Vital Signs: Vital Signs x48h Pulse Resp BP 05/19/25 10:03 67 16 120/84 05/19/25 02:56 60 16 133/82 H LABS 05/16/25 19:15 Discharge Plan Discharge Patient Disposition: Home, Self Care Prescriptions: Continued Classic 28 mg iron- 800 mcg tablet 1 tab PO QDAY (DME) breast pump Device See Rx Instructions .MEDSUPPLY Qty: 1 0RF Rx Instructions: As directed Discontinued ferrous sulfate [FeroSul] 325 mg (65 mg iron) tablet 325 mg PO Q OTHER DAY Qty: 90 4RF Rx Instructions: best if taken in the morning. Diet: Regular Print Language: Zambian Patient Instructions: After a Vaginal , : Caring for Yourself Follow-up Care: DELPHINE CAMEJO MD [Primary Care Provider, Family Practice]
[2025-05-19 13:10] VITALS: BP 124/82
--- NOTE | 2025-05-19 13:48 | Labor Flowsheet ---
Labor Flowsheet Datetime Report Generated by CPN: 05/19/2025 13:47 Datetime: 05/19/2025 13:08 VITAL SIGNS NBP Sys/Zayra/Mean (mmHg): 124 : 82 : 90 Pulse: 68 LaborFlag: Labor Datetime: 05/18/2025 02:00 Temperature (C): 36.7 Datetime: 05/17/2025 23:10 SpO2 (%): 99 Datetime: 05/17/2025 22:30 Anesthesia Level Check: T10- Umbilicus Datetime: 05/17/2025 22:29 UTERINE ACTIVITY Monitor Mode: Internal Frequency (min): 1-2 Quality: Strong Duration (sec): 60-80 Pattern: Normal: <= 5 Contractions in 10 Minutes Resting Tone (Palpate): Relaxed Intensity IUP (mmHg): pushing Pitocin Checklist: At Least 1 Acceleration of 15 bpm x 15 Seconds in 30 Minutes or Adequate Variability; No More than 1 Late Deceleration Occurred in Past 30 Minutes; No More than 2 Variable Decelerations > 60 Seconds in Duration and decreasing >60 bpm in 30 minutes; No More than 5 Uterine Contractions in 10 Minutes for any 20 Minute Interval; Uterus Palpates Soft between Contractions; IUPC Resting Tone less than 25 mmHg ASSESSMENT A Monitor Mode: Pool Nurse Interventions for FHR: Ultrasound Adjusted FHR Baseline Rate : 130 Variability: Moderate 6-25 bpm Accelerations: 15X15 Decelerations: Late; Variable Datetime: 05/17/2025 22:28 Pushing Position: Pushing Lithotomy Datetime: 05/17/2025 22:22 Patient Position/Activity: Left Tilt Datetime: 05/17/2025 22:21 Actions for Decelerations: Pitocin Off Datetime: 05/17/2025 22:19 STAGE 2 Pushing: Coached on Pushing; Urge to Push Pushing Progress: Descent with Pushing; Perineal Bulging; with Pushing; Pushing Effectively with Contractions Datetime: 05/17/2025 22:15 VAGINAL EXAM Dilatation (cm): 10.0 Station: 2 Exam by: Elisabeth Alexandra, RN Datetime: 05/17/2025 22:11 Procedures: Sterile Vag Exam Datetime: 05/17/2025 22:01 Resting Tone IUP (mmHg): 40 Crosby Units (mmHg): 280 Datetime: 05/17/2025 21:38 Communication Comments: MD left room Datetime: 05/17/2025 21:29 Category: Category II Datetime: 05/17/2025 21:05 COMMUNICATION Communication: Provider at Bedside Datetime: 05/17/2025 20:55 Notification Reason: Status Datetime: 05/17/2025 20:40 Provider Reviewed Strip: Yes Provider Notified (Name): Candy Leslie Datetime: 05/17/2025 19:29 MATERNAL ASSESSMENT Level of Consciousness: Alert DTR's/Clonus: No Clonus Headache: Denies Breath Sounds, Left: Clear and Equal Breath Sounds, Right: Clear and Equal Nausea/Vomiting: Denies TEACHING Instructional Method: Verbal Plan of Care: Plan of Care Discussed Unit Routine: Monitoring Labor/Induction: Labor Stages Pain Management: Epidural Datetime: 05/17/2025 18:37 Patient Care Comments: position change to thrown position Datetime: 05/17/2025 16:37 Medication Comments: pitocin reduced by half Datetime: 05/17/2025 16:23 Monitor Interventions for UA: IUPC Inserted Contraction Comments: IUPC inserted by CNM Datetime: 05/17/2025 16:18 Membrane Status: Ruptured Membranes Rupture Method: Artificial Amniotic Fluid Color: Clear Amniotic Fluid Amount: Moderate Datetime: 05/17/2025 16:15 Effacement (%): 70 Datetime: 05/17/2025 07:42 MEDICATIONS Pitocin (milliunits): Started @ Datetime: 05/17/2025 06:46 Cervix, Consistency: Soft Cervical Ripening Agents: Tyson Balloon Hygiene: Mita Care Datetime: 05/17/2025 06:23 Comments: Monitor change Datetime: 05/17/2025 04:26 Membranes Ruptured Date/Time: 05/17/2025 16:20 Amniotic Fluid Odor: Normal Datetime: 05/17/2025 04:00 PAIN Pain Scale: 0 Pain Presence: None/Denies Pain Goal: 0 Pain Relief Measures: Epidural Given Datetime: 05/17/2025 01:55 I/O Interventions: Tyson Cath Inserted Datetime: 05/17/2025 01:01 Pain Type: Cramping Pain Location: Abdomen Pain Coping: Breathing Through Contractions Pain Assessment Comments: left side RUQ Epigastric Pain: Denies Datetime: 05/17/2025 00:50 Epidural Procedure Other: Pump Started Datetime: 05/17/2025 00:46 Epidural Procedure: Loading Dose Datetime: 05/17/2025 00:38 Anesthesia Comments: HR-68 Datetime: 05/17/2025 00:28 ANESTHESIA Epidural Positioning: Sitting Datetime: 05/17/2025 00:27 PROCEDURE TIME OUT Procedure Verify: Correct Patient Identity; Correct Side and Site are Marked; Accurate Procedure Consent Form; Agreement on Procedure to be Done; Correct Patient Position; Relevant Images and Results are Properly Labeled and Displayed; Safety Precautions Based on Patient History or Medication Use Datetime: 05/16/2025 23:42 Analgesics/Sedatives: Fentanyl (mcg) @ 50 Datetime: 05/16/2025 19:30 PATIENT CARE IV/Blood Work: IV Started Comfort Measures: Breathing/Relaxation
== END 2025-05-19 13:30 | disposition home or self-care (01) | DRG 807 ==
LOC: WFO 18:09 → FBP 18:12
PROVIDERS: ADMIT Nurse Practitioner Obstetrics & Gynecology; ATTEND Nurse Practitioner Obstetrics & Gynecology
DX: O99.824 Streptococcus B carrier state complicating childbirth; O26.893 Other specified pregnancy related conditions, third trimester; O99.02 Anemia complicating childbirth; O69.81X0 Labor and delivery complicated by cord around neck, without compression, not applicable or unspecified; O70.0 First degree perineal laceration during delivery; Z3A.39 39 weeks gestation of pregnancy; Z67.11 Type A blood, Rh negative; Z37.0 Single live birth